=== PATIENT | female | born 1935 | race Caucasian/White ===

== ENCOUNTER 2017-04-13 17:11 | Observation (INO) | payer OTHER ==
--- NOTE | 2017-04-13 17:38 | EDPHY ---
H & P Time Seen by Provider: 04/13/17 17:36 HPI/ROS: CHIEF COMPLAINT: Heart fluttering HISTORY OF PRESENT ILLNESS: Patient was seen 3 days ago in our emergency department for similar symptoms and was seen by her pacemaker investment representative and had pacemaker mediated tachycardia and her device was adjusted. Since 2:00 p.m. The patient today has had intermittent palpitations and racing heart rate. Moderate symptoms identical to 3 days ago, associated with nausea and shortness of breath. Not associated with syncope. Not better worse with anything. REVIEW OF SYSTEMS: Eye: no change in vision, said she has had trouble focusing ever since her pacemaker with no change ENT: no sore throat, chronically hard of hearing no change Cardiac: no chest pain or syncope Pulmonary: Not coughing but does of shortness of breath Abdomen: no vomiting, diarrhea, abdominal pain. Does have nausea Musculoskeletal: no back pain Skin: no rash Neuro: no headache Constitutional: no fever : no urinary symptoms A comprehensive 10 point review of systems is otherwise negative aside from elements mentioned in the history of present illness. PAST MEDICAL HISTORY: Previous ED visit dated 04/10/2013 personally reviewed. 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 Pacemaker mediated tachycardia. AFib on Pradaxa, hypertension hyperlipidemia, coronary artery bypass grafting. Knee replacement. Social history: Here with her son General Appearance: Alert and conversant, cooperative. Eyes: No scleral icterus. ENT, Mouth: Normal mucous membranes. Respiratory: Normal respiratory effort, breath sounds equal, lungs are clear to auscultation. Cardiovascular: regular rate and rhythm, no murmur, occasional extrasystole Gastrointestinal: Abdomen is soft and non tender. Neurological: Alert, face symmetric, normal motor and sensory in extremities. Skin: Warm and dry, no rashes. Musculoskeletal: No peripheral edema. Psychiatric: Not agitated. Emergency Department course/MDM: Device is [employer]. Railcar Switcher is Sage Olguin. 1819: discussed with Ivan, ask pacemaker rep to interrogate. 1828: [employer] rep is apparently and [place] and will not be able to be here until much later tonight. After discussion with Ivan will admit for workup of her nausea and shortness of breath as well as pacemaker interrogation. Discussed with patient pacemaker rep delay and presentation, also no PCU beds available right now. She is on Pradaxa, pulmonary embolism considered but I think would be unlikely. Smoking Status: Never smoked Constitutional: Initial Vital Signs Temperature (C) 36.5 C 04/13/17 17:18 Heart Rate 72 04/13/17 17:18 Respiratory Rate 17 04/13/17 17:18 Blood Pressure 101/48 L 04/13/17 17:18 O2 Sat (%) 97 04/13/17 17:18 O2 Delivery Mode Room Air Allergies/Adverse Reactions: TIANA Inhibitors Allergy (Verified 04/13/17 21:45) morphine Allergy (Verified 04/13/17 17:18) Sulfa (Sulfonamide Antibiotics) Allergy (Verified 04/13/17 17:18) Home Medications: Medication Instructions Recorded Dabigatran Etexilate Mesyl 150 mg PO BID 04/10/17 [Pradaxa 150 MG (*)] Nebivolol HCl [Bystolic] 10 mg PO DAILY 04/10/17 Rosuvastatin Calcium [Crestor 40mg 40 mg PO HS 04/10/17 (*)] amLODIPine BESYLATE [Norvasc 5 mg 5 mg PO DAILY 04/10/17 (*)] clonazePAM [klonoPIN (*)] 1 mg PO HS 04/10/17 Cholecalciferol Vit D3 [Vitamin D3 1,000 units PO DAILY 04/13/17 (*)] Herbals/Supplements -Info Only 1 ea PO DAILY 04/13/17 [place]-3 Fatty Acids [Fish Oil 1000 1,000 mg PO DAILY 04/13/17 mg (*)] Spironolactone [Aldactone 25 MG 50 mg PO DAILY 04/13/17 (*)] Medical Decision Making - Diagnostics EKG Interpretation: 12-lead EKG interpreted by me; official reading is in trace master. My interpretation is V paced with left anterior fascicular block, LVH. Rate 76. Imaging Results: Imaging Impressions Chest X-Ray 04/13/17 17:47 Impression: 1. Clear lungs. No acute process. 2. Stigmata of cardiovascular disease. Imaging: I viewed and interpreted images myself Differential Diagnosis: Differential considered including but not limited to atrial fibrillation, malignant dysrhythmia such as ventricular tachycardia, pacemaker mediated tachycardia, atrial flutter. Consult/Admit Bed Type: Serafina 2100 - Data Points Laboratory Results: Laboratory Results 04/13/17 17:35 04/13/17 17:35 04/13/1704/13/18 17:35 17:35 WBC 7.75 10^3/uL 10^3/uL (3.80-9.50) RBC 4.73 10^6/uL 10^6/uL (4.18-5.33) Hgb 13.9 g/dL g/dL (12.6-16.3) Hct 42.1 % % (38.0-47.0) MCV 89.0 fL fL (81.5-99.8) MCH 29.4 pg pg (27.9-34.1) MCHC 33.0 g/dL g/dL (32.4-36.7) RDW 14.3 % % (11.5-15.2) Plt Count 185 10^3/uL 10^3/uL (150-400) MPV 9.6 fL fL (8.7-11.7) Neut % (Auto) 52.2 % % (39.3-74.2) Lymph % (Auto) 34.5 % % (15.0-45.0) [place] % (Auto) 9.8 % % (4.5-13.0) Eos % (Auto) 2.3 % % (0.6-7.6) Baso % (Auto) 0.9 % % (0.3-1.7) Nucleat RBC Rel Count 0.0 % % (0.0-0.2) Absolute Neuts (auto) 4.05 10^3/uL 10^3/uL (1.70-6.50) Absolute Lymphs (auto) 2.67 10^3/uL 10^3/uL (1.00-3.00) Absolute Monos (auto) 0.76 10^3/uL 10^3/uL (0.30-0.80) Absolute Eos (auto) 0.18 10^3/uL 10^3/uL (0.03-0.40) Absolute Basos (auto) 0.07 10^3/uL 10^3/uL (0.02-0.10) Absolute Nucleated RBC 0.00 10^3/uL 10^3/uL (0-0.01) Immature Gran % 0.3 % % (0.0-1.1) Immature Gran # 0.02 10^3/uL 10^3/uL (0.00-0.10) Sodium 140 mEq/L mEq/L (135-145) Potassium 4.2 mEq/L mEq/L (3.5-5.2) Chloride 105 mEq/L mEq/L (97-110) Carbon Dioxide 21 mEq/l L mEq/l (22-31) Anion Gap 14 mEq/L mEq/L (8-16) BUN 25 mg/dL H mg/dL (7-23) Creatinine 1.4 mg/dL H mg/dL (0.6-1.0) Estimated GFR 36 Glucose 121 mg/dL H mg/dL (70-100) Calcium 9.5 mg/dL mg/dL (8.5-10.4) Troponin I 0.019 ng/mL ng/mL (0.000-0.034) NT-Pro-B Natriuret Pep 926 pg/mL H pg/mL (0-450) Departure - Departure Disposition: [facility] Inpatient Acute Clinical Impression: Palpitations Condition: Good
--- NOTE | 2017-04-13 17:44 | CPEKG ---
Heart Rate: 76 RR Interval: 789 QRSD Interval: 90 QT Interval: 420 QTC Interval: 473 P Amado: 0 QRS Amado: -49 T Wave Amado: 106 EKG Severity - ABNORMAL ECG - EKG Impression: VENTRICULAR-PACED COMPLEXES EKG Impression: LEFT ANTERIOR FASCICULAR BLOCK EKG Impression: LVH WITH SECONDARY REPOLARIZATION ABNORMALITY Electronically Signed By: Eric Acevedo 13-Apr-2017 17:49:07
[2017-04-13 18:15] LABS: PLATELET COUNT 185 10^3/uL (150-400)
[2017-04-13] MEDS ORDERED: ONDANSETRON DISINTEGRATING 4 MG TAB PO PRN (21:59)
[2017-04-13] MEDS ORDERED: ZOLPIDEM TARTRATE 5 MG TAB PO PRN (21:59)
[2017-04-13] MEDS ORDERED: ONDANSETRON 4 MG/2 ML VIAL IVP PRN (21:59)
[2017-04-13] MEDS ORDERED: ACETAMINOPHEN 325 MG TAB PO PRN (21:59)
--- NOTE | 2017-04-13 22:05 | PDGENHP ---
History and Physical History and Physical: CC: Palpitations and feeling shaky HISTORY: This patient has a history of pacemaker was at this ER 3 days ago with some palpitations and was noted to have on interrogation of her pacemaker pacemaker mediated tachycardia. Her pacemaker was reprogrammed she was stable condition and her symptoms had resolved and she went home. Today she notes feeling somewhat shaky although without rigors or shivering or feeling cold. She has had some nausea and says she has been able to eat despite this and there is no vomiting. She denies any fever per se or abdominal pain or other digestive symptoms. She also again feels palpitations similar today to which she had 3 days ago. She is concerned she is having pacemaker mediated tachycardia again. She denies any angina chest pain, heart failure symptoms, lightheadedness, increasing chronic leg swelling. ROS: A comprehensive 10 system review revealed no other significant findings PAST MEDICAL HISTORY: Pacemaker placement for control of AFib with rate control medicines Pacemaker mediated tachycardia treated by reprogramming 3 days ago Coronary bypass surgery and stent placement also aortic valve treatment Chronic anticoagulation Hypertension Total knee replacement FAMILY MEDICAL HISTORY: Thyroid disease SOCIAL HISTORY: No tobacco or alcohol MEDICATIONS: The patients list has been reconciled by our clinical pharmacist in the EMR. I have reviewed the list and ordered appropriate medicines. 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: She has on the pacemaker what looks like on 1st glance a sinus rhythm at 76-78 beats per minute which is quite steady however the the monitor does show its interpretation that there is an atrial pacer spike for every other heart beat persistently Examination: General: alert, oriented, good mentation, relaxed Skin: warm, dry, good color, no rash HEENT: normal Neck: no mass or jvd Resps: relaxed Lungs: clear breath sounds Heart: regular, no murmur Abdomen: soft, nondistended, nontender, +BS, no mass Upper Extremities: normal Lower Extremities: Minimal edema, warm No Bleeding or bruising Neurologic: normal speech/language, 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 There is nothing that looks like ischemia acutely. There is evidence of LVH. In terms of the rhythm she has for the most part a steady regular narrow QRS complex at 76 per minute with 2 PVCs interposed. There are also some pacer spikes followed by P waves that appear to come at random intervals in relation to the QRS waves as if there were a dissociation between the pacer spikes and the QRS complex. ASSESSMENT: -palpitations, question of possible pacer malfunction but with a steady heart rate at 76-78 per minute which was regular -symptoms of shakiness and nausea of uncertain etiology but currently no evidence for an infectious disease, heart failure exacerbation, or any other specific acute etiology -chronic illnesses as listed in the past medical history all appear to be compensated and stable at this time PLANS: -observe on press bucker for now -repeat 12 lead EKG -pacemaker benefits representative has been requested to come and interrogate the pacemaker again I have reviewed the patient's case in detail with Dr. Dr. Eric Woods who has reviewed the case also with Dr. Stewart Love I have reviewed the patient's past medical records as part of this assessment, including previous ER visit records vital signs and laboratory data
--- NOTE | 2017-04-13 22:10 | CPEKG ---
Heart Rate: 76 RR Interval: 789 P-R Interval: 300 QRSD Interval: 90 QT Interval: 420 QTC Interval: 473 P Preston: 0 QRS Preston: -46 T Wave Preston: 114 EKG Severity - ABNORMAL ECG - EKG Impression: A-V DUAL-PACED COMPLEXES W/ SOME INHIBITION Electronically Signed By: Eric Acevedo 14-Apr-2017 05:53:28
[2017-04-13 23:45] VITALS: RESP 18
[2017-04-14] MEDS ORDERED: DABIGATRAN ETEXILATE MESYL 150 MG CAP PO SCH (09:00)
[2017-04-14] MEDS ORDERED: CHOLECALCIFEROL VIT D3 1,000 UNITS TAB PO SCH (09:00)
[2017-04-14] MEDS ORDERED: OMEGA-3 FATTY ACIDS 1,000 MG CAP PO SCH (09:00)
[2017-04-14] MEDS ORDERED: SPIRONOLACTONE 25 MG TAB PO SCH (09:00)
[2017-04-14] MEDS ORDERED: NON-FORMULARY NEW DRUG (Nebivolol Hcl [Bystolic] 10 MG) PO SCH (09:00)
[2017-04-14] MEDS ORDERED: amLODIPine BESYLATE 5 MG TAB PO SCH (09:00)
[2017-04-14] MEDS ORDERED: NEBIVOLOL HCL 5 MG TAB PO SCH ×2 (09:00→21:00)
--- NOTE | 2017-04-14 09:05 | CPEKG ---
Heart Rate: 71 RR Interval: 845 P-R Interval: 620 QRSD Interval: 88 QT Interval: 412 QTC Interval: 448 P El[place]: 0 QRS [place]: -50 T Wave [place]: 108 EKG Severity - ABNORMAL ECG - EKG Impression: ATRIAL-PACED COMPLEXES EKG Impression: FIRST DEGREE AV BLOCK EKG Impression: PROMINENT P WAVES, NONDIAGNOSTIC EKG Impression: LEFT ANTERIOR FASCICULAR BLOCK EKG Impression: LVH WITH SECONDARY REPOLARIZATION ABNORMALITY Electronically Signed By: Darion Palma 14-Apr-2017 17:53:37
[2017-04-14 12:38] VITALS: BP 107/57; PULSE 60; TEMP 98; O2SAT 93
--- NOTE | 2017-04-14 14:19 | ASMTCASEMG ---
Living Arrangements What is your living Answers: Alone arrangement? Who do you live with? Type Of Residence What kind of residence do Answers: House you live in? Discharge Plan Comments Coordination Status Comments Notes: Pt is a 81 y/o female admitted for palpitations and feeling shaky. Pt was recently here at [facility] in the ED for heart flutter on 04/10/17. Pt will most likely d/c independent when medically stable. No therapies ordered at this time. CM available for changes. Plan: Independent Date Signed: 04/14/2017 02:18 PM Electronically Signed By:MIHAELA Grimes
--- NOTE | 2017-04-14 19:00 | GDS ---
[f rep st] DISCHARGE SUMMARY KNOWN ACUTE DIAGNOSES: 1. Palpitations without confirmed cardiac dysrhythmia. 2. 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 3. Chronic anticoagulation on Pradaxa. 4. Hypertension. 5. Paroxysmal atrial fibrillation on rate control medications. CONSULTATION: Pacemaker interrogation which indicated that there were no signs of dysfunction of the pacemaker and the reprogramming that had been done 3 days prior was successful. HISTORY OF PRESENT ILLNESS: This an 81-year-old female who had been seen 3 days prior for palpitatio ns. It was felt that she was having pacemaker mediated tachycardia, and interrogation confirmed this finding. The intervals were changed and the patient was discharged home with these changes. She re turned with a complaint of feeling that there were palpitations. Her blood pressure was normal. Oxy gen saturation was normal and an interrogation of the pacemaker indicated that there was no malfuncti on or pacemaker mediated tachycardia. The patient felt much improved, and during monitoring in the h ospital, she remained in sinus rhythm. DISCHARGE MEDICATIONS: These will be the same as her admission medications as follows: Bystolic 10 mg h.s., Pradaxa 150 mg twice daily, Crestor 40 mg h.s., Klonopin 1 mg h.s., Norvasc 5 mg daily, farhad min D3 1000 international units daily, [place]-3 fatty acids 1000 mg daily, herbal supplementation, Ald actone 50 mg daily, ASA 81 mg daily. PLAN: The patient will follow up with Dr. Sage Olguin regarding her care for cardiology within next 1-2 weeks. She will then also follow up with her PCP, Dr. Mulu Parham, on a p.r.n. basis. TIME: This discharge required 45 minutes, greater than 50% to intake counselor and coordinate her care. /[id number]/MODL
[2017-04-14] MEDS ORDERED: ROSUVASTATIN CALCIUM 40 MG TAB PO SCH (21:00)
[2017-04-14] MEDS ORDERED: clonazePAM 1 MG TAB PO SCH (21:00)
[2017-04-15] MEDS ORDERED: ASPIRIN EC 81 MG TAB PO SCH (09:00)
== END 2017-04-14 16:48 | disposition home or self-care (01) ==
LOC: MERGE 21:07 → F2W 04-14 08:48
PROVIDERS: ADMIT Internal Medicine; ATTEND Internal Medicine Pulmonary Disease
DX: R00.2 Palpitations (principal); Z95.0 Presence of cardiac pacemaker; I48.91 Unspecified atrial fibrillation; I10 Essential (primary) hypertension; Z79.01 Long term (current) use of anticoagulants; Z95.2 Presence of prosthetic heart valve; E78.5 Hyperlipidemia, unspecified; Z95.1 Presence of aortocoronary bypass graft; Z96.659 Presence of unspecified artificial knee joint
CPT/HCPCS: 71046; 93005; 99285; G0378